=== PATIENT | female | born 1980 | race Caucasian/White ===

== ENCOUNTER 2016-08-01 20:58 | Emergency (ER) | payer SELFPAY ==
[~2016-08-01] VITALS: Ht 172.7 cm; Wt 81.0 kg
[2016-08-01 21:10] VITALS: BP 142/92
== END 2016-08-01 22:50 | disposition left against medical advice (07) ==
LOC: ER 21:08
DX: R22.0 Localized swelling, mass and lump, head (principal); R51 Headache; Y07.03 Male partner, perpetrator of maltreatment and neglect; Y09 Assault by unspecified means; Y93.9 Activity, unspecified; Y92.9 Unspecified place or not applicable; F15.10 Other stimulant abuse, uncomplicated; Z86.59 Personal history of other mental and behavioral disorders; Z87.01 Personal history of pneumonia (recurrent); Z53.21 Procedure and treatment not carried out due to patient leaving prior to being seen by health care provider